=== PATIENT | female | born 1935 | race Caucasian/White ===

== ENCOUNTER 2022-02-26 20:18 | Emergency (ER) | payer OTHER ==
[~2022-02-26] VITALS: Ht 149.9 cm; Wt 50.3 kg
[2022-02-26 20:18] VITALS: BP 158/77
--- NOTE | 2022-02-26 20:18 | NUR ---
TO BED , RENÉE FROM HOME WITH C/O ALOC.
--- NOTE | 2022-02-26 20:46 | NUR ---
PT STATED SHE WAS EATINF DINNER AND HER EYES GOT LITTLE CLOUDY. PT STATES SHE WAS TAKING A MEDICAL TEST. AND AFTERWORD SHE WAS FEELING DIFFERENT. PT STATES HE FEELS DIZZY . PT IS AMBULATORY . PT STATES SHE DIDNT FALL , DIDNT LOSE CONSCIOUSNESS. PT LIVES WTH . PMH: HTN , HYSTERECTOMY. RX: METOPROLOL. PT TOOK TODAY LBM: 02/26/22
--- NOTE | 2022-02-26 21:00 | NUR ---
PROVIDED PT WATER AND URINE CUP
[2022-02-26 21:03] LABS: BASOPHILS % (AUTO) 0.7 % (0.0-2.0); EOSINOPHILS # (AUTO) 0.1 K/uL (0-0.4); EOSINOPHILS % (AUTO) 1.4 % (0.0-4.0); HEMATOCRIT 37.6 % (36-48); HEMOGLOBIN 12.9 g/dL (12.0-16.0); LYMPHOCYTES # (AUTO) 1.7 K/uL (2.5-16.5); LYMPHOCYTES % (AUTO) 25.1 % (20.5-51.1); MEAN CORPUSCULAR HEMOGLOBIN 31 pg (27-31); MEAN CORPUSCULAR HGB CONC 34 g/dL (33-37); MEAN CORPUSCULAR VOLUME 89.8 fL (80-94); MONOCYTES # (AUTO) 0.6 K/uL (0.8-1.0); MONOCYTES % (AUTO) 8.1 % (1.7-9.3); NEUTROPHILS # (AUTO) 4.5 K/uL (1.8-7.7); NEUTROPHILS % (AUTO) 64.7 % (42.2-75.2); PLATELET COUNT (AUTO) 246 K/uL (140-450); RED BLOOD CELL COUNT(AUTO) 4.19 MIL/uL (4.20-5.40); RED CELL DISTRIBUTION WIDTH 12.9 % (11.6-13.7); WHITE BLOOD COUNT (AUTO) 6.9 K/uL (4.8-10.8)
[2022-02-26 21:18] LABS: ALBUMIN 3.7 g/dL (3.4-5.0); ANION GAP 12.5 (8-16); ASPARTATE AMINOTRANSFERASE 30 U/L (15-37); CARBON DIOXIDE 26.8 mmol/L (21-32); CHLORIDE 94 mmol/L (98-107); CREATININE 0.9 mg/dL (0.6-1.3); GLUCOSE 134 mg/dL (74-106); POTASSIUM 3.3 mmol/L (3.5-5.1); SODIUM SERUM 130 mmol/L (136-145); TOTAL BILIRUBIN 0.4 mg/dL (0.0-1.0); UREA NITROGEN, BLOOD 20 mg/dL (7-18)
--- NOTE | 2022-02-26 21:27 | NUR ---
PT TAKEN TO CT VIA [facility]
--- NOTE | 2022-02-26 21:43 | NUR ---
PT RETURNED FROM CT
--- NOTE | 2022-02-26 23:50 | NUR ---
WALKED PT TO BATHROOM. URINE COLLECTED AND SENT TO LAB
[2022-02-26 23:54] LABS: APPEARANCE,URINE CLEAR (CLEAR); BILIRUBIN,URINE NEGATIVE (NEGATIVE); BLOOD, URINE TRACE-I (NEGATIVE); COLOR,URINE YELLOW (YELLOW); LEUKOCYTE ESTERASE ,URINE NEGATIVE (NEGATIVE); NITRITE, URINE NEGATIVE (NEGATIVE); PH,URINE 7.5 (5.0-9.0); UGLUCOSE NEGATIVE (NEGATIVE)
[2022-02-27 00:07] LABS: RBC,URINE 0-5 /HPF (0-5)
[2022-02-27 00:08] LABS: WBC,URINE 0-5 /HPF (0-5)
[2022-02-27] MEDS ORDERED: ASPIRIN 325 MG TAB PO ONE (00:20)
[2022-02-27] MEDS ORDERED: METO25TE2 PO (00:54)
[2022-02-27] MEDS ORDERED: IBUP-2213 PO (00:55)
[2022-02-27] MEDS ORDERED: [UNRECOGNIZED DRUG - CODE] PO (00:55)
[2022-02-27] MEDS ORDERED: ASPI-1822 PO (00:57)
--- NOTE | 2022-02-27 00:59 | NUR ---
MED RECONCILE COMPLETED
--- NOTE | 2022-02-27 04:10 | NUR ---
Chart checked and completed.
--- NOTE | 2022-02-27 04:10 | NUR ---
Patient discharged with v/s stable. Written and verbal after care instructions given and explained. Patient verbalized understanding. Ambulatory with steady gait. All questions addressed prior to discharge. Advised to follow up with PMD.
[2022-02-27 04:15] VITALS: BP 129/51
== END 2022-02-27 04:10 | disposition home or self-care (01) ==
LOC: MED 20:18
DX: R55 Syncope and collapse (principal); R42 Dizziness and giddiness
CPT/HCPCS: 36415; 70450; 71045; 80053; 81001; 84484; 85025; 93005; 99284; Q0092